=== PATIENT | female | born 1965 | race Caucasian/White ===

== ENCOUNTER 2019-06-21 15:26 | Emergency (ER) | payer OTHER ==
[2019-06-21 15:36] VITALS: BP 152/96
--- NOTE | 2019-06-21 16:50 | ED Physician Documentation ---
PD HPI ANIMAL BITE - Stated complaint Stated Complaint: POT RABIES EXPOSURE - Chief complaint Chief Complaint: General - History obtained from History obtained from: Patient - History of Present Illness Details of the event: Other (bat was in their bedroom. They awoke and noted it flying around. swatted at it and it rubbed against his arm. Patient not aware of bit per se, but after the event, noted a small red spot on her knee, so wondering if it was a bite unbeknownst. They did not think much of it, but then looked it up on internet and then called [facility], who urged them to come to the ER for discussion. Patient got from the HD a strong preference for rabies immunization treatment though they said they would not directly recommend or not.) Timing - onset: Yesterday Timing - details: Abrupt onset Associated symptoms: No: Weakness, Numbness, Tingling Contributing factors: No: Immunocompromised Review of Systems Constitutional: denies: Fever Nose: denies: Rhinorrhea / runny nose, Congestion Throat: denies: Sore throat Respiratory: denies: Cough Neurologic: denies: Focal weakness, Numbness, Headache PD PAST MEDICAL HISTORY - Past Medical History Past Medical History: No - Present Medications Home Medications: Ambulatory Orders Medication Instructions Recorded Confirmed Rabies Vaccine [Rabavert] 2.5 unit IM ONCE #3 syringe 06/21/19 - Allergies Allergies/Adverse Reactions: Allergies Allergy/AdvReac Type Severity Reaction Status Date / Time Sulfa (Sulfonamide Allergy Anaphylaxis Verified 06/21/19 15:36 Antibiotics) PD ED PE NORMAL - Vitals Vital signs reviewed: Yes - General General: Alert and oriented X 3, No acute distress, Well developed/nourished - Derm Derm: Normal color, Warm and dry - Extremities Extremities: Other (left anterior knee with small red bump, without pustule. No FB noted. No surrounding redness nor swelling. ) - Neuro Neuro: Alert and oriented X 3, No motor deficit, No sensory deficit Results - Vitals Vitals: Oxygen O2 Source Room air PD MEDICAL DECISION MAKING - ED course Complexity details: considered differential (low risk exposure but shared decision with patients and they lean with [facility] "recommendation". ), d/w patient Departure - Departure Disposition: 01 Home, Self Care Clinical Impression: Exposure to bat without known bite Condition: Stable Record reviewed to determine appropriate education?: Yes Prescriptions: Rabies Vaccine [Rabavert] 2.5 unit IM ONCE #3 syringe Comments: You will need repeat rabies vaccine on June 24 and . I wrote a prescription for these and you could bring them to a walk-in clinic or an urgent care presumably to have them administered. Alternatively you can simply return to the ER for repeat administrations. Discharge Date/Time: 06/21/19 18:55
[2019-06-21] MEDS ORDERED: RABIES VACCINE 2.5 UNIT SYRINGE IM ONE (17:33)
[2019-06-21] MEDS ORDERED: RABIES IMMUNE GLOBULIN 300 UNITS/2 ML IM STA ×2 (17:33→17:56)
== END 2019-06-21 18:55 | disposition home or self-care (01) ==
LOC: ED 15:26
DX: Z29.14 Encounter for prophylactic rabies immune globulin (principal); Z20.3 Contact with and (suspected) exposure to rabies; L98.9 Disorder of the skin and subcutaneous tissue, unspecified
CPT/HCPCS: 90471; 96372; 99282

== ENCOUNTER 2019-06-24 13:53 | Emergency (ER) | payer OTHER ==
[2019-06-24 13:59] VITALS: BP 160/94
[2019-06-24] MEDS ORDERED: RABIES VACCINE 2.5 UNIT SYRINGE IM ONE (14:10)
--- NOTE | 2019-06-24 14:12 | ED Physician Documentation ---
History of Present Illness - Stated complaint Stated Complaint: RABIES TREATMENT - Chief complaint Chief Complaint: General - History obtained from History obtained from: Patient - History of Present Illness Timing: How many days ago (3) Pain level max: 0 Pain level now: 0 - Additonal information Additional information: Here for rabies vaccination. Seen previously for same Review of Systems Constitutional: denies: Fever Cardiac: denies: Chest pain / pressure Respiratory: denies: Cough GI: denies: Vomiting PD PAST MEDICAL HISTORY - Past Medical History Past Medical History: No - Past Surgical History Past Surgical History: No - Present Medications Home Medications: Ambulatory Orders Medication Instructions Recorded Confirmed Rabies Vaccine [Rabavert] 2.5 unit IM ONCE #3 syringe 06/21/19 - Allergies Allergies/Adverse Reactions: Allergies Allergy/AdvReac Type Severity Reaction Status Date / Time Sulfa (Sulfonamide Allergy Anaphylaxis Verified 06/24/19 13:59 Antibiotics) - Social History Does the pt smoke?: No Smoking Status: Never smoker Does the pt drink ETOH?: No Does the pt have substance abuse?: No - Immunizations Immunizations are current?: Yes - POLST Patient has POLST: No PD ED PE NORMAL - Vitals Vital signs reviewed: Yes - General General: Alert and oriented X 3, No acute distress - HEENT HEENT: Moist mucous membranes - Neck Neck: Supple, no meningeal sign - Cardiac Cardiac: RRR - Respiratory Respiratory: No respiratory distress, Clear bilaterally - Derm Derm: Warm and dry - Neuro Neuro: Alert and oriented X 3 Results - Vitals Vitals: Oxygen O2 Source Room air PD MEDICAL DECISION MAKING - ED course Complexity details: reviewed old records, considered differential, d/w patient ED course: Vaccination given. No acute complaints Departure - Departure Disposition: 01 Home, Self Care Clinical Impression: Exposure to bat without known bite Condition: Good Follow-Up: your,doctor [Other] Comments: Your next rabies vaccination should be on June 28, The final vaccination will be on July 05. Discharge Date/Time: 06/24/19 14:32
== END 2019-06-24 14:32 | disposition home or self-care (01) ==
LOC: ED 13:53
DX: Z23 Encounter for immunization (principal); Z20.3 Contact with and (suspected) exposure to rabies
CPT/HCPCS: 90471; 99282